=== PATIENT | female | born 1990 | race American Indian/Alaskan Native ===

== ENCOUNTER 2018-07-25 20:01 | Emergency (ER) | payer MEDICAID, OTHER ==
[2018-07-25 20:09] VITALS: BP 112/72
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
[2018-07-25] MEDS: NORCO 5/325 PO STA ×2 (23:17→23:32)
== END 2018-07-25 23:34 | disposition home or self-care (01) ==
LOC: ED 20:01
DX: M54.2 Cervicalgia (principal); M25.512 Pain in left shoulder; M79.10 Myalgia, unspecified site; V89.2XXA Person injured in unspecified motor-vehicle accident, traffic, initial encounter; Y93.89 Activity, other specified; Y92.488 Other paved roadways as the place of occurrence of the external cause; Y99.8 Other external cause status
CPT/HCPCS: 72040; 99283

== ENCOUNTER 2019-04-01 11:27 | Outpatient (CLI) | payer MEDICAID ==
[2019-04-01] MEDS ORDERED: LACTATED RINGERS 1,000 ML IV ONE (12:10)
[2019-04-01 12:25] VITALS: BP 107/61
[2019-04-01 13:58] LABS: Bilirubin,Urine NEG (Negative); Blood,Urine NEG (Negative); Color,Urine Yellow (Yellow); Mucus,Urine FEW /HPF; Protein,Urine <15 mg/dL mg/dL (Negative); Urobilinogen,Urine < 2.0 mg/dL (<2.0)
[2019-04-01] MEDS ORDERED: FLUCONAZOLE 100 MG TAB PO ONE (15:17)
[2019-04-01] MEDS ORDERED: metroNIDAZOLE 500 MG TAB PO ONE (15:19)
== END 2019-04-01 15:01 | disposition home or self-care (01) ==
LOC: TRG 11:27
PROVIDERS: ATTEND Obstetrics & Gynecology
DX: O99.89 Other specified diseases and conditions complicating pregnancy, childbirth and the puerperium (principal); N89.8 Other specified noninflammatory disorders of vagina; O47.03 False labor before 37 completed weeks of gestation, third trimester; Z3A.28 28 weeks gestation of pregnancy
CPT/HCPCS: 81001; 96360; J7120